=== PATIENT | male | born 1985 | race Asian ===

== ENCOUNTER 2018-12-11 10:37 | Emergency (ER) | payer MEDICAID ==
[~2018-12-11] VITALS: Ht 182.9 cm; Wt 85.3 kg
[2018-12-11 10:46] VITALS: Ht 182.9 cm; Wt 85.3 kg
[2018-12-11 12:04] VITALS: BP 140/90
== END 2018-12-11 12:19 | disposition home or self-care (01) ==
LOC: ED 10:37
DX: S90.32XA Contusion of left foot, initial encounter (principal); X58.XXXA Exposure to other specified factors, initial encounter; Y93.89 Activity, other specified; Y92.89 Other specified places as the place of occurrence of the external cause; Y99.0 Civilian activity done for income or pay

== ENCOUNTER 2019-06-15 14:11 | Emergency (ER) | payer MEDICAID ==
[~2019-06-15] VITALS: Ht 167.6 cm; Wt 82.6 kg
[2019-06-15 15:01] VITALS: BP 142/93; Ht 167.6 cm; Wt 82.6 kg
== END 2019-06-15 18:27 | disposition left against medical advice (07) ==
LOC: ED 14:11
DX: Z53.21 Procedure and treatment not carried out due to patient leaving prior to being seen by health care provider (principal)